=== PATIENT | female | born 1950 | race Caucasian/White ===

== ENCOUNTER 2020-11-06 07:44 | Day surgery (SDC) | payer OTHER ==
[~2020-11-06] VITALS: Ht 172.7 cm; Wt 61.7 kg
[2020-11-06] MEDS ORDERED: DEXTROSE 50% 50 ML SYR IVP ONE (08:35)
[2020-11-06] MEDS ORDERED: fentaNYL citrate 0.05 MG/ML VIAL ONE (09:16)
[2020-11-06] MEDS ORDERED: diphenhydrAMINE 50 MG/ML VIAL ONE (09:16)
[2020-11-06] MEDS ORDERED: MIDAZOLAM 5 MG/5 ML VIAL ONE (09:16)
[2020-11-06] MEDS ORDERED: AMMONIA AROMATIC 1 INHL INH ONE ×2 (09:37→10:25)
[2020-11-06] MEDS ORDERED: fentaNYL citrate 0.05 MG/ML VIAL IVP ONE (10:25)
[2020-11-06] MEDS ORDERED: MIDAZOLAM 2 MG/2 ML VIAL IVP ONE (10:25)
== END 2020-11-06 11:05 | disposition home or self-care (01) ==
LOC: MDS 07:44 → MMU 07:45 → MDS 11:05
PROVIDERS: ATTEND Internal Medicine Gastroenterology
DX: K30 Functional dyspepsia (principal); I10 Essential (primary) hypertension; E11.9 Type 2 diabetes mellitus without complications; E78.00 Pure hypercholesterolemia, unspecified; Z79.84 Long term (current) use of oral hypoglycemic drugs; Z79.899 Other long term (current) drug therapy
CPT/HCPCS: 43239; 88305; 88312; 88313; 88342; J2250; J3010; J1200